=== PATIENT | male | born 1985 ===

== ENCOUNTER 2025-02-04 13:55 | Emergency (ER) | payer OTHER ==
[~2025-02-04] VITALS: Ht 167.6 cm; Wt 54.4 kg
[2025-02-04] MEDS ORDERED: SINGULAIR10 MG (14:06)
[2025-02-04] MEDS ORDERED: ZYRTEC10 MG (14:06)
[2025-02-04] MEDS ORDERED: KEPPRA500 MG PO (14:06)
[2025-02-04] MEDS ORDERED: 0.9 % SODIUM CHLORIDE 1,000 ML IV SCH (14:30)
[2025-02-04] MEDS ORDERED: LEVALBUTEROL HCL 0.63 MG/3 ML SOLUTION IH SCH (14:30)
[2025-02-04] MEDS ORDERED: METHYLPREDNISOLONE SOD SUCC 125 MG VIAL IV ONE (14:30)
[2025-02-04 16:14] LABS: ABG PH 7.391 (7.35-7.45); ABG PO2 72.6 mmHg (80-100); BICARBONATE 22.2 mmol/l (23-25)
[2025-02-04 16:20] LABS: BASO % 0.4 % (0.1-1.2); EOS # 0.12 (0.04-0.54); EOS % 1.2 % (0.7-7.0); LYMPH # 1.16 (1.18-3.74); LYMPH % 11.6 % (19.3-53.1); MEAN PLATELET VOLUME 9.70 fl (9.4-12.4); MONO # 0.08 (0.24-0.82); MONO % 0.8 % (4.7-12.5); NEUT # 8.59 (1.56-6.13); NEUT % 85.8 % (34.0-71.1); RED CELL DISTRIBUTION WIDTH 12.6 % (11.6-14.4)
[2025-02-04] MEDS ORDERED: MAGNESIUM SULFATE IN WATER 2 GM/50 ML PIGGYBAG IV ONE (16:30)
[2025-02-04 16:53] LABS: COVID-19 AG NEGATIVE (NEGATIVE)
[2025-02-04 18:01] LABS: o2 28 %
[2025-02-04] MEDS ORDERED: IPRATROPIUM BROMIDE 0.5 MG/2.5 ML AMPUL.NEB IH ONE (19:15)
[2025-02-04] MEDS ORDERED: LEVALBUTEROL HCL 1.25 MG/3 ML SOLUTION IH ONE (19:15)
[2025-02-04] MEDS ORDERED: MEDROLPACK PO (20:05)
[2025-02-04] MEDS ORDERED: ZYRTEC10 MG PO (20:05)
[2025-02-04] MEDS ORDERED: AZITHROMYCIN500 MG PO (20:05)
[2025-02-04] MEDS ORDERED: LEVALBUTER0.63 MG/3 IH (20:05)
[2025-02-04] MEDS ORDERED: PROAIR RESPICL90 MCG IH (20:05)
[2025-02-04] MEDS ORDERED: PEPCID AC20 MG PO (20:05)
[2025-02-04] MEDS ORDERED: SINGULAIR10 MG PO (20:05)
== END 2025-02-04 20:39 | disposition home or self-care (01) ==
LOC: ER 13:55 → EDSEX 13:55 → ER 16:33
PROVIDERS: Emergency Medicine
DX: J45.909 Unspecified asthma, uncomplicated (principal); Z20.822 Contact with and (suspected) exposure to COVID-19; Z88.0 Allergy status to penicillin; Z88.8 Allergy status to other drugs, medicaments and biological substances

== ENCOUNTER 2025-02-10 10:45 | Inpatient (IN) | payer OTHER ==
[~2025-02-10] VITALS: Ht 167.6 cm; Wt 58.1 kg
[~2025-02-10 10:45] MED LIST: AZITHROMYCIN500 MG PO; KEPPRA500 MG PO; LEVALBUTER0.63 MG/3 IH; MEDROLPACK PO; PEPCID AC20 MG PO; PROAIR RESPICL90 MCG IH; SINGULAIR10 MG; SINGULAIR10 MG PO; ZYRTEC10 MG; ZYRTEC10 MG PO
--- NOTE | 2025-02-10 10:58 | NUR ---
SE RECIBE PTE ALERTA Y ORIENTADO X3 EN AMBULANCIA. REFIERE DIFICULTAD RESPIRATORIA DESDE LA NOCHE DE JOAQUIN. SE MIDE SV, SAT 88%. SE REALIZA EKG Y SE PRESENTA A DR. DONALD. SE UBICA EN K7 CONECTADO A MONITOR CARDIACO Y OXIMETRIA DE PULSO CONTINUA. PTE CON CANULA NASAL A 2LT/MIN DESDE AMBULANCIA.
[2025-02-10] MEDS ORDERED: 0.9 % SODIUM CHLORIDE 1,000 ML IV SCH ×2 (11:00→18:45)
[2025-02-10] MEDS ORDERED: METHYLPREDNISOLONE SOD SUCC 125 MG VIAL ONE (11:14)
[2025-02-10] MEDS ORDERED: LEVALBUTEROL HCL 0.63 MG/3 ML SOLUTION IH ONE (11:14)
[2025-02-10] MEDS ORDERED: METHYLPREDNISOLONE SOD SUCC 125 MG VIAL IV ONE (11:15)
[2025-02-10] MEDS ORDERED: LEVALBUTEROL HCL 0.63 MG/3 ML SOLUTION IH SCH (11:15)
--- NOTE | 2025-02-10 11:17 | NUR ---
SE ORIENTA PTE SOBRE TX A SEGUIR, LA MISMA REFIERE ENTENDER. SE DOROTEO MUESTRAS DE LAB, SE CANALIZA Y SE ADMINISTRA MED DANYELLE ORDEN MEDICA. SE NOTIFICAN ABG Y TERAPIAS RESP A TR FALU
[2025-02-10] MEDS ORDERED: LEVALBUTEROL HCL 1.25 MG/3 ML SOLUTION IH ONE ×2 (11:42→19:57)
[2025-02-10 11:59] LABS: COVID-19 AG NEGATIVE (NEGATIVE)
[2025-02-10 12:02] LABS: ALT/SGPT 12.0 U/L (12-78); AST/SGOT 7.0 U/L (15-37); BILIRUBIN TOTAL 0.68 mg/dL (0.3-1.2); BUN CREA RATIO 18.0 (7.0-25.0); CREATININE SERUM 0.91 mg/dL (0.70-1.30); GFR 93.24; GLOBULINA 3.1 G/DL (2.4-3.5); GLUCOSE FASTING 100.0 mg/dL (65-100); OSMOLALITY SERUM 286.0 MOSM/KG (275-295)
[2025-02-10 12:26] LABS: BASO % 1.2 % (0.1-1.2); EOS # 0.72 (0.04-0.54); EOS % 8.5 % (0.7-7.0); LYMPH # 2.62 (1.18-3.74); LYMPH % 30.8 % (19.3-53.1); MEAN PLATELET VOLUME 11.60 fl (9.4-12.4); MONO # 0.73 (0.24-0.82); MONO % 8.6 % (4.7-12.5); NEUT # 4.29 (1.56-6.13); NEUT % 50.4 % (34.0-71.1); RED CELL DISTRIBUTION WIDTH 12.8 % (11.6-14.4)
[2025-02-10 13:01] LABS: ABG PH 7.387 (7.35-7.45); ABG PO2 63.5 mmHg (80-100); BICARBONATE 22.4 mmol/l (23-25)
[2025-02-10 13:02] LABS: o2 21 %
--- NOTE | 2025-02-10 15:19 | NUR ---
PTE ALERTA Y ORIENTADO X 3 ESFERAS EN CAMA CON BARANDAS ELEVADAS,SIN FAMILIAR AL MOMENTO DE LA KERLINE,CONECTADO A MONITOR CARDIACO Y OXIMETRIA,CANULA NASAL @ 3LTS LA CUAL TOLERA.AREA DE VENOPUNCION PATENTE Y JANELLE DE EDEMA CON FLUIDOS DE MANTENIMIENTO.PENDIENTE A TERAPIAS RESP.SE GENET BAJO OBSERVACION POR CAMBIOS.
[2025-02-10] MEDS ORDERED: LEVALBUTEROL HCL 1.25 MG/3 ML SOLUTION IH SCH (18:40)
[2025-02-10] MEDS ORDERED: IPRATROPIUM BROMIDE 0.5 MG/2.5 ML AMPUL.NEB IH SCH (18:41)
[2025-02-10] MEDS ORDERED: METHYLPREDNISOLONE SOD SUCC 40 MG VIAL IV SCH (18:43)
[2025-02-10] MEDS ORDERED: FAMOTIDINE/PF 20 MG in 0.9 % SODIUM CHLORIDE 8 ML IV PUSH SCH (18:43)
[2025-02-10] MEDS ORDERED: levoFLOXacin IN DEXTROSE 5 % 150 ML IV SCH (18:43)
[2025-02-10] MEDS ORDERED: MONTELUKAST SODIUM 10 MG TABLET PO SCH (18:44)
[2025-02-10] MEDS ORDERED: ACETAMINOPHEN 500 MG GEL..CAP PO PRN (18:45)
[2025-02-10] MEDS ORDERED: LevETIRAcetam 500 MG TAB. PO SCH (18:45)
[2025-02-10] MEDS ORDERED: METHYLPREDNISOLONE SOD SUCC 40 MG VIAL ONE (19:08)
[2025-02-10] MEDS ORDERED: FAMOTIDINE/PF 20 MG/2 ML VIAL ONE (19:09)
[2025-02-10] MEDS ORDERED: IPRATROPIUM BROMIDE 0.5 MG/2.5 ML AMPUL.NEB IH ONE (19:57)
[2025-02-10 20:55] LABS: INR 1.36
[2025-02-10 20:57] VITALS: BP 125/76
[2025-02-10] MEDS ORDERED: GUAIFEN/DEXTROMETHORPHAN/PE 10 ML BLIST.PACK PO SCH (21:00)
[2025-02-10] MEDS ORDERED: GUAIFEN/DEXTROMETHORPHAN/PE 10 ML BLIST.PACK PO ONE (21:55)
[2025-02-11] VITALS (8 sets, daily range): BP systolic 109–116; BP diastolic 68–81; O2SAT 86–94
[2025-02-11] MEDS ORDERED: METHYLPREDNISOLONE SOD SUCC 40 MG VIAL ONE (00:30)
[2025-02-11] MEDS ORDERED: GUAIFEN/DEXTROMETHORPHAN/PE 10 ML BLIST.PACK PO ONE (00:30)
[2025-02-11 01:58] LABS: ABG PH 7.364 (7.35-7.45); ABG PO2 69.0 mmHg (80-100); BICARBONATE 23.4 mmol/l (23-25)
[2025-02-11 02:00] LABS: o2 32 %
[2025-02-11 03:24] LABS: URINE APPEARANCE Clear; URINE BILIRRUBIN Negative (NEGATIVE); URINE BLOOD Negative; URINE COLOR Yellow; URINE KETONE Trace (NEGATIVE); URINE LEUKOCYTE Negative; URINE NITRATE Negative; URINE PROTEIN Negative (NEGATIVE); URINE UROBILINOGEN 0.2 E.U./dl
[2025-02-11 03:27] LABS: URINE BACTERIA 127.2 uL (0.0-1933); URINE EPITHELIAL CELLS 1.9 uL (0.0-38.8); URINE WBC 2.6 uL (0.0-23.2)
[2025-02-11 03:37] LABS: URINE CAST 0.14 uL (0.0-1.40); URINE GLUCOSE 500 MG/DL (NEGATIVE); URINE RBC 1.7 uL (0.0-20.8)
[2025-02-11] MEDS ORDERED: ENOXAPARIN SODIUM 40 MG/0.4 ML SYRINGE SUBCUTANEO SCH (09:00)
[2025-02-11] MEDS ORDERED: LevETIRAcetam 500 MG TAB. PO SCH (09:00)
[2025-02-12] VITALS (9 sets, daily range): BP systolic 101–120; BP diastolic 67–72; O2SAT 89–99
[2025-02-13] VITALS (8 sets, daily range): BP systolic 102–118; BP diastolic 65–70; O2SAT 87–98
[2025-02-13 06:05] LABS: BASO % 0.0 % (0.1-1.2); EOS # 0.00 (0.04-0.54); EOS % 0.0 % (0.7-7.0); LYMPH # 1.36 (1.18-3.74); LYMPH % 13.8 % (19.3-53.1); MEAN PLATELET VOLUME 10.40 fl (9.4-12.4); MONO # 0.50 (0.24-0.82); MONO % 5.1 % (4.7-12.5); NEUT # 7.95 (1.56-6.13); NEUT % 80.5 % (34.0-71.1); RED CELL DISTRIBUTION WIDTH 12.9 % (11.6-14.4)
[2025-02-13 06:48] LABS: ALT/SGPT 10 U/L (12-78); AST/SGOT 10 U/L (15-37); BILIRUBIN TOTAL 0.31 mg/dL (0.3-1.2); BUN CREA RATIO 29 (7.0-25.0); CREATININE SERUM 0.58 mg/dL (0.70-1.30); GFR 156.80; GLOBULINA 2.5 G/DL (2.4-3.5); GLUCOSE FASTING 149 mg/dL (65-100); LDH 222 U/L (87-241); OSMOLALITY SERUM 284 MOSM/KG (275-295)
[2025-02-14] VITALS (8 sets, daily range): BP systolic 115–120; BP diastolic 68–75; O2SAT 93–96
[2025-02-15 02:09] VITALS: BP 110/73; O2SAT 91
[2025-02-15 08:25] VITALS: BP 114/70
[2025-02-15 08:26] VITALS: BP 114/70
[2025-02-15 08:35] LABS: ALT/SGPT 14.0 U/L (12-78); AST/SGOT 10.0 U/L (15-37); BILIRUBIN TOTAL 0.45 mg/dL (0.3-1.2); BUN CREA RATIO 34.0 (7.0-25.0); CREATININE SERUM 0.61 mg/dL (0.70-1.30); GFR 147.93; GLOBULINA 2.7 G/DL (2.4-3.5); GLUCOSE FASTING 134.0 mg/dL (65-100); OSMOLALITY SERUM 281.0 MOSM/KG (275-295)
[2025-02-15 16:42] VITALS: O2SAT 94
[2025-02-15 17:33] VITALS: BP 122/84
[2025-02-15 22:05] LABS: BASO % 0.2 % (0.1-1.2); EOS # 0.00 (0.04-0.54); EOS % 0.0 % (0.7-7.0); LYMPH # 1.50 (1.18-3.74); LYMPH % 14.2 % (19.3-53.1); MEAN PLATELET VOLUME 9.90 fl (9.4-12.4); MONO # 0.52 (0.24-0.82); MONO % 4.9 % (4.7-12.5); NEUT # 8.35 (1.56-6.13); NEUT % 79.2 % (34.0-71.1); RED CELL DISTRIBUTION WIDTH 12.6 % (11.6-14.4)
[2025-02-15 22:22] VITALS: O2SAT 94
[2025-02-16 02:39] VITALS: BP 114/74; O2SAT 93
[2025-02-16 05:18] VITALS: O2SAT 97
[2025-02-16 08:59] VITALS: BP 130/60
[2025-02-16] MEDS ORDERED: METHYLPREDNISOLONE SOD SUCC 40 MG VIAL IV SCH (13:00)
[2025-02-16 17:01] VITALS: O2SAT 95
[2025-02-16 18:11] VITALS: BP 111/77; O2SAT 94
[2025-02-16 21:35] VITALS: O2SAT 99
[2025-02-17 02:55] VITALS: BP 105/66; O2SAT 92
[2025-02-17 07:35] LABS: BASO % 0.2 % (0.1-1.2); EOS # 0.05 (0.04-0.54); EOS % 0.4 % (0.7-7.0); LYMPH # 3.37 (1.18-3.74); LYMPH % 30.1 % (19.3-53.1); MEAN PLATELET VOLUME 10.00 fl (9.4-12.4); MONO # 1.03 (0.24-0.82); MONO % 9.2 % (4.7-12.5); NEUT # 6.57 (1.56-6.13); NEUT % 58.8 % (34.0-71.1); RED CELL DISTRIBUTION WIDTH 12.9 % (11.6-14.4)
[2025-02-17 07:55] LABS: BUN CREA RATIO 22.0 (7.0-25.0); CREATININE SERUM 0.73 mg/dL (0.70-1.30); GFR 120.24; GLUCOSE FASTING 79.0 mg/dL (65-100); OSMOLALITY SERUM 281.0 MOSM/KG (275-295)
[2025-02-17 08:30] VITALS: BP 98/66
[2025-02-17 09:26] VITALS: O2SAT 90
[2025-02-17 10:21] LABS: ABG PH 7.407 (7.35-7.45)
[2025-02-17 10:22] LABS: ABG PO2 83.1 mmHg (80-100)
[2025-02-17 10:23] LABS: BICARBONATE 24.2 mmol/l (23-25); o2 21 %
[2025-02-17 12:52] VITALS: O2SAT 95
[2025-02-17 17:27] VITALS: BP 117/76; O2SAT 92
[2025-02-17 17:45] VITALS: O2SAT 90
[2025-02-18] VITALS (7 sets, daily range): BP systolic 97–106; BP diastolic 60–67; O2SAT 88–97
[2025-02-18] MEDS ORDERED: METHYLPREDNISOLONE ACETATE 80 MG/ML VIAL IM ONE (11:00)
[2025-02-18] MEDS ORDERED: METHYLPREDNISOLONE SOD SUCC 40 MG VIAL IV SCH (21:00)
[2025-02-19 00:58] VITALS: BP 104/69; O2SAT 95
[2025-02-19 06:47] LABS: BASO % 0.2 % (0.1-1.2); EOS # 0.43 (0.04-0.54); EOS % 2.5 % (0.7-7.0); LYMPH # 4.22 (1.18-3.74); LYMPH % 24.2 % (19.3-53.1); MEAN PLATELET VOLUME 10.20 fl (9.4-12.4); MONO # 1.62 (0.24-0.82); MONO % 9.3 % (4.7-12.5); NEUT # 10.86 (1.56-6.13); NEUT % 62.1 % (34.0-71.1); RED CELL DISTRIBUTION WIDTH 13.1 % (11.6-14.4)
[2025-02-19 07:22] LABS: BUN CREA RATIO 22.0 (7.0-25.0); CREATININE SERUM 0.78 mg/dL (0.70-1.30); GFR 111.39; GLUCOSE FASTING 70.0 mg/dL (65-100); OSMOLALITY SERUM 281.0 MOSM/KG (275-295)
[2025-02-19 08:00] VITALS: BP 100/66
[2025-02-19] MEDS ORDERED: ZYRTEC10 MG PO (09:14)
[2025-02-19] MEDS ORDERED: LEVALBUTER0.63 MG/3 IH (09:15)
[2025-02-19] MEDS ORDERED: PROAIR RESPICL90 MCG IH (09:15)
[2025-02-19] MEDS ORDERED: IPRATROPIU0.2 MG/1 M IH (09:15)
[2025-02-19] MEDS ORDERED: XOPENEX CO1.25 MG/0. IH (09:15)
[2025-02-19] MEDS ORDERED: KEPPRA500 MG PO (09:16)
[2025-02-19] MEDS ORDERED: ALTIPRES LIQUI473 ML PO (09:16)
[2025-02-19] MEDS ORDERED: FAMOTIDINE20 MG PO (09:17)
[2025-02-19] MEDS ORDERED: MONTELUKAST SOD10 MG PO (09:17)
[2025-02-19] MEDS ORDERED: SINGULAIR10 MG PO (09:17)
[2025-02-19] MEDS ORDERED: LEVOFLOXACIN500 MG PO (09:18)
[2025-02-19] MEDS ORDERED: MEDROLPACK PO (09:19)
== END 2025-02-19 11:57 | disposition home or self-care (01) | DRG 194 ==
LOC: ER 10:45 → MEDJ 21:16
PROVIDERS: Emergency Medicine; General Practice; Internal Medicine; Internal Medicine Infectious Disease; ADMIT Internal Medicine; ATTEND Internal Medicine
PROC: BB24ZZZ Computerized Tomography (CT Scan) of Bilateral Lungs (ICD-10-PCS; principal; 2025-02-11)
PROC: 3E0F7GC Introduction of Other Therapeutic Substance into Respiratory Tract, Via Natural or Artificial Opening (ICD-10-PCS; 2025-02-11)
PROC: 4A12X4Z Monitoring of Cardiac Electrical Activity, External Approach (ICD-10-PCS; 2025-02-11)
PROC: 8E0ZXY6 Isolation (ICD-10-PCS; 2025-02-12)
DX: J15.7 Pneumonia due to Mycoplasma pneumoniae (principal); J45.41 Moderate persistent asthma with (acute) exacerbation; R09.02 Hypoxemia